=== PATIENT | female | born 1975 | race Caucasian/White ===

== ENCOUNTER 2020-12-31 07:11 | Emergency (ER) | payer OTHER ==
[2020-12-31] MEDS ORDERED: Sodium Chloride 0.9% 10 ML Syringe FLUSH PRN (08:30)
[2020-12-31] MEDS ORDERED: Acetaminophen 325 MG Tab ONE (08:43)
[2020-12-31] MEDS ORDERED: Ketorolac 60 MG/2 ML SDV ONE (08:46)
[2020-12-31] MEDS ORDERED: Ondansetron 4 MG/2 ML SDV ONE (08:47)
--- NOTE | 2020-12-31 09:01 | EDM.PDOC ---
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 GI/Abdominal: Reports: Abdominal Pain, Nausea, Vomiting ED EXAM, GENERAL - Physical Exam Exam: See Below Exam Limited By: Other (pain) General Appearance: Moderate Distress Eye Exam: Bilateral Eye: PERRL Ears: Normal External Exam Nose: Normal Inspection, Normal Mucosa Throat/Mouth: Normal Inspection, Normal Lips, Normal Teeth Head: Atraumatic, Normocephalic Neck: Normal Inspection, Supple, Non-Tender Respiratory/Chest: No Respiratory Distress, Lungs Clear, Normal Breath Sounds Cardiovascular: Normal Peripheral Pulses, Regular Rate, Rhythm, No Edema Peripheral Pulses: 2+: Radial (L), Radial (R) GI/Abdominal: Normal Bowel Sounds, Soft Back Exam: CVA Tenderness (L) Neurological: Alert, Oriented, CN II-XII Intact Psychiatric: Normal Affect, Normal Mood Skin Exam: Warm, Dry, Normal Color Lymphatic: No Adenopathy Course - Vital Signs Last Recorded V/S: Last Vital Signs Temp 36.5 C 12/31/20 08:59 Pulse 55 L 12/31/20 08:59 Resp 16 12/31/20 08:59 BP 137/89 12/31/20 08:59 Pulse Ox 100 12/31/20 08:59 - Orders/Labs/Meds Orders: Active Orders 24 hr Category Date Time Status Abdomen Pelvis wo Cont [CT] Stat Exams 12/31/20 08:12 Taken Sodium Chloride 0.9% [Normal Saline] 1,000 ml Med 12/31/20 09:30 Active IV ASDIRECTED Medication Orders Sodium Chloride (Normal Saline) 1,000 mls @ 999 mls/hr IV ASDIRECTED AUDREY Last Admin: 12/31/20 09:20 Dose: 999 mls/hr Documented by: DINH Labs: Laboratory Tests 12/31/20 12/31/20 Range/Units 08:12 08:12 WBC 4.6 (4.0-11.0) K/uL RBC 4.48 (3.80-5.80) M/uL Hgb 14.2 (11.5-16.5) g/dL Hct 39.9 (37.0-47.0) % MCV 89 (76-96) fL MCH 31.7 (27.0-32.0) pg MCHC 35.6 H (31.0-35.0) g/dL RDW 11.7 (11.0-16.0) % Plt Count 232 (150-500) K/uL MPV 10.4 H (6.0-10.0) fL Neut % (Auto) 41.3 L (45.0-70.0) % Lymph % (Auto) 45.8 H (20.0-40.0) % Branch % (Auto) 8.4 (3.0-10.0) % Eos % (Auto) 4.1 (1.0-5.0) % Baso % (Auto) 0.4 (0.0-0.5) % Neut # (Auto) 1.91 L (2.00-7.50) K/uL Lymph # (Auto) 2.12 (1.50-4.00) K/uL Branch # (Auto) 0.39 (0.20-0.80) K/uL Eos # (Auto) 0.19 (0.04-0.40) K/uL Baso # (Auto) 0.02 (0.02-0.10) K/uL Sodium 140 (136-145) mmol/L Potassium 3.9 (3.5-5.1) mmol/L Chloride 104 (98-107) mmol/L Carbon Dioxide 26.5 (21.0-32.0) mmol/L Anion Gap 13.4 (5.0-15.0) mmol/L BUN 14 (8-26) mg/dL Creatinine 1.18 H (0.55-1.02) mg/dL Est Cr Clr Drug Dosing 48.75 mL/min Estimated GFR (MDRD) 49 L (>60) MLS/MIN BUN/Creatinine Ratio 11.9 (6-25) Glucose 109 H (74-100) mg/dL Calcium 8.7 (8.5-10.1) mg/dL Total Bilirubin 0.6 (0.0-1.0) mg/dL AST 25 (15-37) U/L ALT 37 (12-78) U/L Alkaline Phosphatase 79 (46-116) U/L Total Protein 7.9 (6.4-8.2) g/dL Albumin 4.2 (3.4-5.0) g/dL Globulin 3.7 (2.2-4.2) g/dL Albumin/Globulin Ratio 1.1 (0.8-2.0) Meds: Medications Generic Name Dose Route Start Last Admin Trade Name Freq PRN Reason Stop Dose Admin Sodium Chloride 1,000 mls @ 999 mls/hr 12/31/20 09:30 12/31/20 09:20 Normal Saline IV 999 mls/hr ASDIRECTED AUDREY Administration Discontinued Medications Generic Name Dose Route Start Last Admin Trade Name Freq PRN Reason Stop Dose Admin Acetaminophen Confirm 12/31/20 08:43 Tylenol Administered 12/31/20 08:44 Dose 975 mg .ROUTE .STK-MED ONE Acetaminophen/Codeine Phosphate Confirm 12/31/20 09:32 Tylenol With Codeine No.3 300mg/30mg Administered 12/31/20 09:33 Dose 1 tab .ROUTE .STK-MED ONE Hydrocodone Bitart/Acetaminophen 1 tab 12/31/20 09:25 [place] 325-5 Mg PO 12/31/20 09:26 ONETIME ONE Ketorolac Tromethamine Confirm 12/31/20 08:46 Toradol Administered 12/31/20 08:47 Dose 60 mg .ROUTE .STK-MED ONE Ketorolac Tromethamine 30 mg 12/31/20 09:15 12/31/20 08:30 Toradol IVPUSH 12/31/20 09:16 30 mg ONETIME ONE Administration Ondansetron HCl Confirm 12/31/20 08:47 Zofran Administered 12/31/20 08:48 Dose 4 mg .ROUTE .STK-MED ONE Ondansetron HCl 4 mg 12/31/20 09:15 12/31/20 09:17 Zofran IVPUSH 12/31/20 09:16 4 mg ONETIME ONE Administration Departure - Departure Time of Disposition: 12:00 Disposition: Home, Self-Care 01 Condition: Good Clinical Impression: Left renal stone - Discharge Information *PRESCRIPTION DRUG MONITORING PROGRAM REVIEWED*: Not Applicable Instructions: Kidney Stones, [id number], Dietary Guidelines to Help Prevent Kidney Stones Referrals: PCP,None [Primary Care Provider] - Forms: ED Department Discharge Additional Instructions: Follow up with PCP post discharge. Manage pain with OTC Tylenol and NSAID. Increase fluid intake. RT to ED for new or worsening symptoms. Take Tylenol 3 pa in meds no more than two times a day for acute pain. Sepsis Event Note (ED) - Focused Exam Vital Signs: Vital Signs Temp Pulse Resp BP Pulse Ox 12/31/20 08:59 36.5 C 55 L 16 137/89 100 - Problem List Review Problem List Initiated/Reviewed/Updated: Yes - My Orders Last 24 Hours: My Active Orders 12/31/20 08:12 Abdomen Pelvis wo Cont [CT] Stat 12/31/20 09:30 Sodium Chloride 0.9% [Normal Saline] 1,000 ml IV ASDIRECTED - Assessment/Plan Last 24 Hours: My Active Orders 12/31/20 08:12 Abdomen Pelvis wo Cont [CT] Stat 12/31/20 09:30 Sodium Chloride 0.9% [Normal Saline] 1,000 ml IV ASDIRECTED Assessment:: Left renal stone 3mm per CT evaluation. Plan: Follow up with PCP post discharge. Manage pain with OTC Tylenol and NSAID. Increase fluid intake. RT to ED for new or worsening symptoms.
[2020-12-31] MEDS ORDERED: Ketorolac 30 MG/ML SDV IVPUSH ONE ×2 (09:15→10:26)
[2020-12-31] MEDS ORDERED: Ondansetron 4 MG/2 ML SDV IVPUSH ONE (09:15)
[2020-12-31] MEDS: Sodium Chloride 0.9% 1,000 ML IV SCH ×2 (09:20→10:27)
[2020-12-31] MEDS ORDERED: Acetaminophen/HYDROcodone 325-5 MG Tab PO ONE (09:25)
[2020-12-31] MEDS ORDERED: Acetaminophen/Codeine 300-30 MG Tab ONE (09:32)
--- NOTE | 2021-01-01 07:37 | CT ---
Date of Service: 12/31/20 Clinical Data: left sided flank/abdominal pain UNENHANCED ABDOMEN AND PELVIC CT: Multislice acquisition through the abdomen and pelvis without IV or oral contrast was performed. No priors. The lung bases are clear. The heart size is normal. There is a moderate-sized pericardial effusion. There are surgical changes involving the stomach consistent with a prior gastric bypass. The unenhanced liver appears normal. No focal hepatic lesions. The gallbladder is normal size. There is subtle hyperdense material within the dependent gallbladder which may represent sludge, milk of calcium bile, or even small gallstones. Gallbladder ultrasound is recommended. The spleen appears normal. The pancreas appears normal. The right and left adrenal appear normal. No nephrocalcinosis or nephrolithiasis. There is mild pyelocaliectasis on the left and mild prominence of the proximal left ureter. There is a 2 mm distal ureteral calculus on the left. It is just proximal to the ureterovesical junction. The bladder is partially fluid filled. There is diffuse bladder wall thickening. This is probably related to nondistention. Cystitis should be considered. There are numerous calcifications within the pelvis that are most likely vascular. There are surgical changes involving the small bowel on the left abdomen and pelvis. The appendix is not seen. No evidence of appendicitis. No free air. No free fluid. No dilated loops of bowel. No adenopathy. No aortic aneurysm. No other significant findings. IMPRESSION: 2 mm distal ureteral calculus on the left. Proximal hydronephrosis and hydroureter. [id number] [facility]
== END 2020-12-31 11:30 | disposition home or self-care (01) ==
LOC: LB.ED 07:11
DX: N13.2 Hydronephrosis with renal and ureteral calculous obstruction (principal)
CPT/HCPCS: 36415; 74176; 80053; 81001; 85025; 96374; 96375; 96376; 99283; 99284-25; A9270-GY; J1885; J2405; J7030